=== PATIENT | male | born 2000 | race Caucasian/White ===

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

== ENCOUNTER → 2024-04-29 | Outpatient (CLI) | payer SELFPAY | LOC: M PLALAB 09:03 | PROVIDERS: ATTEND Obstetrics & Gynecology | DX: Z31.430 Encounter of female for testing for genetic disease carrier status for procreative management (principal) ==